=== PATIENT | male | born 1950 | race Caucasian/White ===

== ENCOUNTER → 2018-01-12 | Outpatient (CLI) | payer MEDICARE, OTHER ==
[~2018-01-12] MED LIST: ADULT LOW DOSE81 MG; BACTRIM DS TAB1 EACH PO; FLEXERIL PO; GLUCOPHAGE XR500 MG; IBUPROFEN 800800 MG PO; MULTIVITAMINS; PRINIVIL20 MG; SIMVASTATIN40 MG; VICODIN 5-5001 EACH
== END ==
LOC: M.ULTRA 12:58
DX: M79.89 Other specified soft tissue disorders (principal); M79.662 Pain in left lower leg; I10 Essential (primary) hypertension; E78.00 Pure hypercholesterolemia, unspecified; Z88.0 Allergy status to penicillin